=== PATIENT | female | born 1985 | race Caucasian/White ===

== ENCOUNTER → 2019-02-06 10:41 | Outpatient (CLI) | payer OTHER | END | disposition home or self-care (01) | LOC: LAB 10:41 | DX: E03.8 Other specified hypothyroidism (principal); E28.2 Polycystic ovarian syndrome; E11.9 Type 2 diabetes mellitus without complications; J20.0 Acute bronchitis due to Mycoplasma pneumoniae ==

== ENCOUNTER 2019-05-15 02:54 | Emergency (ER) | payer OTHER ==
[~2019-05-15] VITALS: Ht 152.4 cm; Wt 81.6 kg
[2019-05-15] MEDS ORDERED: DOLOGESIC-DF 51 EACH PO (07:39)
[2019-05-15] MEDS ORDERED: ZYNCOF 20-400120 ML PO (07:39)
== END 2019-05-15 08:02 | disposition home or self-care (01) ==
LOC: ER 02:54
DX: B34.9 Viral infection, unspecified (principal); R50.9 Fever, unspecified